=== PATIENT | female | born 1990 | race African-American/Black ===

== ENCOUNTER 2018-09-17 03:39 | Emergency (ER) | payer MEDICAID ==
[~2018-09-17] VITALS: Ht 154.9 cm; Wt 79.4 kg
[2018-09-17 04:00] VITALS: BP 106/64
== END 2018-09-17 10:47 | disposition left against medical advice (07) ==
LOC: ER 03:39
DX: M54.9 Dorsalgia, unspecified (principal); Z53.21 Procedure and treatment not carried out due to patient leaving prior to being seen by health care provider

== ENCOUNTER 2019-01-23 03:59 | Emergency (ER) | payer MEDICAID ==
[~2019-01-23] VITALS: Ht 157.5 cm; Wt 77.1 kg
[2019-01-23] MEDS ORDERED: ALUM & MAG HYDROX-SIMETH LIQ(MAALOX) 30 ML PO ONE (07:00)
[2019-01-23 07:08] VITALS: BP 150/87
== END 2019-01-23 07:35 | disposition home or self-care (01) ==
LOC: ER 04:07
DX: M79.642 Pain in left hand (principal); R12 Heartburn; F17.210 Nicotine dependence, cigarettes, uncomplicated; Z88.6 Allergy status to analgesic agent
CPT/HCPCS: 73130